=== PATIENT | male | born 1955 | race Caucasian/White ===

== ENCOUNTER → 2018-09-08 11:54 | Outpatient (CLI) | payer MEDICARE, OTHER, SELFPAY ==
--- NOTE | 2018-09-08 | DI.MRI.S_ITS ---
PROCEDURE: MR STROKE Pre- and post-contrast brain MRI, non-contrast brain MR angiogram, pre- and postcontrast neck MR angiogram INDICATIONS: CVA TECHNIQUE: Brain: Noncontrast axial T1 spin echo, axial T2 fast spin echo, sagittal and axial FLAIR, coronal T2 fast spin echo, axial gradient echo, axial diffusion and ADC through the brain. After the administration of contrast, axial 3D VIBE of the cranial vasculature and brain. Brain MRA: Non-contrast 3-D time of flight MR angiogram, with multiple tcbafkn-geowlrven-mjawnhqfhh (MIP) reformats performed. Neck MRA: Axial and sagittal TruFISP through the neck. Coronal dynamic MR angiogram during administration of contrast in the arterial and venous phases, with 3-dimenstional stvkhxe-jdcnmjfmg-glkrncwoum (MIP) reformats constructed from subtraction images. COMPARISON: None. FINDINGS: Image quality: Excellent. BRAIN: CSF spaces: Ventricles are normal in size and shape. Basal cisterns are patent. No extra-axial fluid collections. Brain: There is a 6.1 x 2.0 x 4.0 cm subacute bleed centered in the right putamen. Swan-white matter interface is normal. Diffusion weighted images show no acute ischemic insults. A few, scattered punctate foci of increased T2 signal noted in the periventricular and subcortical white matter tracts compatible with mild chronic microvascular ischemic changes. Brainstem appears normal. Normal intravascular flow voids are present. No abnormal intracranial enhancement. Skull and face: Calvarial marrow signal is normal. Orbits appear normal. Sinuses: Paranasal sinuses are clear. Fluid signal noted deep in a portion of the right mastoid air cells. Left mastoids are clear.. BRAIN MR ANGIOGRAM: Anterior circulation: Intracranial internal carotid arteries are normal in size and enhancement. The flow within the paired anterior cerebral arteries is normal and symmetric. The flow within the middle cerebral arteries is normal and symmetric. The anterior communicating artery is seen. No stenoses, occlusions, or aneurysms. Posterior circulation: The visualized portions of the vertebral arteries demonstrate normal caliber, and join to form a normal appearing basilar artery. The flow within the posterior cerebral arteries is normal and symmetric. No stenoses, occlusions, or aneurysms. NECK MR ANGIOGRAM: Carotids: Great vessels demonstrate a conventional anatomy as they arise from the aortic arch. The origins of the common carotid arteries appear patent. The calibers and courses of both common carotid arteries are normal. The bifurcation regions appear normal bilaterally. The internal carotid arteries demonstrate normal course and caliber. Posterior circulation: The origins of the vertebral arteries appear patent. More superior portions of both vertebral arteries demonstrate normal course and caliber, and join to form a normal appearing basilar artery. Miscellaneous: Subclavian arteries appear patent. Pre-contrast images through the neck show no soft tissue abnormalities. IMPRESSION: BRAIN MRI: 1. 6.1 x 2.0 x 4.0 cm subacute right putamen parenchymal bleed compatible with known history of hemorrhagic infarct. Recommend followup MRI of the brain with and without contrast in 6-8 weeks to exclude underlying vascular malformation or neoplasm 2. Mild, diffuse cerebral volume loss. 3. Mild periventricular and subcortical chronic microvascular ischemic changes. BRAIN MR ANGIOGRAM: Negative examination. NECK MR ANGIOGRAM: Negative examination. Findings and recommendations telephoned to Dr. Demetrio Stevens on 09/08/2018 at 1541 hrs. Dictated by: Angela Fischer MD, PhD on 09/08/2018 at 15:28 Approved by: Angela Fischer MD, PhD on 09/08/2018 at 16:03
== END ==
PROVIDERS: PCP Family Medicine; Visit Provider Family Medicine
DX: I63.9 Cerebral infarction, unspecified (principal)
CPT/HCPCS: 70548; 70553; A9579

== ENCOUNTER → 2018-11-26 11:52 | Outpatient (CLI) | payer MEDICARE, OTHER, SELFPAY ==
--- NOTE | 2018-11-26 | DI.MRI.S_ITS ---
PROCEDURE: MR STROKE Pre- and post-contrast brain MRI, non-contrast brain MR angiogram, pre- and postcontrast neck MR angiogram INDICATIONS: Hemiplegia - follow up TECHNIQUE: Brain: Noncontrast axial T1 spin echo, axial T2 fast spin echo, sagittal and axial FLAIR, coronal T2 fast spin echo, axial gradient echo, axial diffusion and ADC through the brain. After the administration of contrast, axial 3D VIBE of the cranial vasculature and brain. Brain MRA: Non-contrast 3-D time of flight MR angiogram, with multiple salgvkh-rnmdjejci-epbpbnvxui (MIP) reformats performed. Neck MRA: Axial and sagittal TruFISP through the neck. Coronal dynamic MR angiogram during administration of contrast in the arterial and venous phases, with 3-dimenstional yslpyuu-rrcbqyixp-lmxozkudse (MIP) reformats constructed from subtraction images. COMPARISON: [facility], MR, MR STROKE, 09/08/2018, 12:27. FINDINGS: Image quality: Excellent. BRAIN: CSF spaces: Ex vacuo dilatation can be seen of the right lateral ventricle. Basal cisterns are patent. No extra-axial fluid collections. Brain: Volume loss and encephalomalacia can be seen involving the right basal ganglia. Deposition of blood products can be seen, with associated susceptibility artifact. No underlying masses are seen. No new intracranial bleeds or mass effects. Swan-white matter interface is normal. Diffusion weighted images show no acute ischemic insults. Brainstem appears normal. Normal intravascular flow voids are present. No abnormal intracranial enhancement. Note is made of a cavum septum pellucidum. When discovered in isolation, this is considered to be a developmental variant of no clinical consequence. Skull and face: Calvarial marrow signal is normal. Orbits appear normal. Sinuses: Sinuses and mastoids are clear. BRAIN MR ANGIOGRAM: Anterior circulation: Intracranial internal carotid arteries are normal in size and enhancement. The flow within the paired anterior cerebral arteries is normal and symmetric. The flow within the middle cerebral arteries is normal and symmetric. The anterior communicating artery is seen. No stenoses, occlusions, or aneurysms. Posterior circulation: The visualized portions of the vertebral arteries demonstrate normal caliber, and join to form a normal appearing basilar artery. Relatively prominent bilateral posterior Conrad arteries are seen. The flow within the posterior cerebral arteries is normal and symmetric. No stenoses, occlusions, or aneurysms. NECK MR ANGIOGRAM: Carotids: Great vessels demonstrate a conventional anatomy as they arise from the aortic arch. The origins of the common carotid arteries appear patent. The calibers and courses of both common carotid arteries are normal. The bifurcation regions appear normal bilaterally. The internal carotid arteries demonstrate normal course and caliber. Posterior circulation: The origins of the vertebral arteries appear patent. More superior portions of both vertebral arteries demonstrate normal course and caliber, and join to form a normal appearing basilar artery. Miscellaneous: Subclavian arteries appear patent. Pre-contrast images through the neck show no soft tissue abnormalities. IMPRESSION: BRAIN MRI: There is a hemorrhagic infarction involving the right basal ganglia, with volume loss compared to the prior examination, with associated ex vacuo dilatation of the right lateral ventricle. The majority of the previously seen hemorrhage has been resolved, yet there is deposition of blood products seen. No underlying mass or vascular abnormality can be seen. No new infarct can be seen. BRAIN MR ANGIOGRAM: No significant intracranial arterial abnormality can be seen. NECK MR ANGIOGRAM: Within the arteries of the neck, no hemodynamically significant stenosis can be seen. Dictated by: Jamison Martines M.D. on 11/26/2018 at 12:41 Approved by: Jamison Martines M.D. on 11/26/2018 at 12:46
== END ==
PROVIDERS: PCP Family Medicine; Visit Provider Family Medicine
DX: I61.0 Nontraumatic intracerebral hemorrhage in hemisphere, subcortical (principal); G81.90 Hemiplegia, unspecified affecting unspecified side
CPT/HCPCS: 70548; 70553

== ENCOUNTER → 2022-02-27 09:20 | Outpatient (CLI) | payer MEDICARE, OTHER, SELFPAY ==
[2022-02-27 19:40] LABS: Add Manual Diff / Slide Review NO; Alanine Aminotransferase 19 IU/L (<50); Albumin 4.1 g/dL (3.5-5.0); Albumin Globulin Ratio 1.4 (1.0-2.8); Alkaline Phosphatase 59 U/L (38-126); Aspartate Aminotransferase 26 IU/L (17-59); BUN Creatinine Ratio 10.1 (6-22); Basophils Absolute Auto 0 /uL (0-100); Basophils Percent Auto 1.4 % (0-2); Bilirubin Total 0.4 mg/dL (0.2-1.3); Blood Urea Nitrogen 11 mg/dL (9-20); Calcium 8.9 mg/dL (8.4-10.2); Carbon Dioxide 28 mmol/L (22-32); Chloride 104 mmol/L (98-107); Cholesterol 215 mg/dL (140-199); Eosinophils Absolute Auto 100 /uL (0-450); Eosinophils Percent Auto 2.4 % (2-4); Estimated Glomerular Filt Rate > 60 mL/min (>60); Glucose 99 mg/dL (80-110); HDL Cholesterol 82 mg/dL (40-60); HEMOLYSIS < 15 (0-50); Hematocrit 42.4 % (41-53); Hemoglobin 14.4 g/dL (13.5-17.5); LDL Cholesterol Calculated 106 mg/dL (<100); Lymphocytes Absolute Auto 1100 /uL (1100-4500); Lymphocytes Percent Auto 37.2 % (25-40); Mean Corpuscular HGB Conc 34.1 % (30-36); Mean Corpuscular Hemoglobin 31.6 PG (26-34); Mean Corpuscular Volume 92.9 fL (80-100); Monocytes Absolute Auto 300 /uL (0-900); Monocytes Percent Auto 9.2 % (3-14); Neutrophils Absolute Auto 1500 /uL (1500-7000); Neutrophils Percent Auto 49.8 % (50-75); Platelet Count 253 X10^3/uL (150-400); Potassium 4.4 mmol/L (3.4-5.1); Red Blood Cell Count 4.56 X10^6/uL (4.5-5.9); Red Cell Distribution Width 13.5 % (11.6-14.8); Sodium 138 mmol/L (137-145); Total Protein 7.1 g/dL (6.3-8.2); Triglycerides 133 mg/dL (35-150); White Blood Cell Count 2.9 X10^3/uL (4.5-11.0)
== END ==
PROVIDERS: PCP Family Medicine; Visit Provider Family Medicine
DX: Z00.00 Encounter for general adult medical examination without abnormal findings (principal); I10 Essential (primary) hypertension; I61.9 Nontraumatic intracerebral hemorrhage, unspecified; R97.20 Elevated prostate specific antigen [PSA]; Z12.5 Encounter for screening for malignant neoplasm of prostate
CPT/HCPCS: 80053; 80061; 85025; G0103

== ENCOUNTER → 2022-05-03 09:10 | Outpatient (CLI) | payer MEDICARE, OTHER, SELFPAY ==
[2022-05-10 17:24] LABS: Prostate Specific Antigen 5.46 ng/mL (0.10-4.00)
== END ==
PROVIDERS: PCP Family Medicine; Visit Provider Family Medicine
DX: R97.20 Elevated prostate specific antigen [PSA] (principal); I10 Essential (primary) hypertension
CPT/HCPCS: 84153

== ENCOUNTER → 2022-09-12 09:08 | Outpatient (CLI) | payer MEDICARE, OTHER, SELFPAY ==
--- NOTE | 2022-09-12 09:10 | DI.MRI.S_ITS ---
PROCEDURE: MR PELVIC PROSTATE PROTOCOL INDICATIONS: elevated PSA TECHNIQUE: Coronal HASTE, axial T1 FSE with fat saturation, 3-plane nonbreath-hold T2 FSE. After the administration of contrast, dynamic axial, delayed axial and coronal VIBE or 2-D FLASH with fat saturation through the pelvis. Optional diffusion weighted imaging and ADC may be performed. COMPARISON: None. FINDINGS: Image quality: Diffusion weighted and dynamic contrast enhanced images are diagnostic. Prostate: Gland size is 4.7 x 3.1 x 3.6 cm; ellipsoid gland volume is 27 mL. There is preservation of normal prostate architecture. There is a surgical defect of a prior TURP. Postcontrast, there is periurethral enhancement. Lesion 1. Right lateral peripheral zone at the mid gland level, ovoid in shape, indistinct margin. 1.3 cm in maximal diameter. T2 score three, diffusion score three, dynamic enhancement present. Total PI-RADS score four. Lesion 2. Right central periurethral transition zone lesion at mid gland to apex. 0.7 cm in maximal diameter measured on diffusion-weighted imaging. T2 score three, diffusion score four, dynamic enhancement is absent. Total PI-RADS score three. Differential diagnosis includes postinflammatory fibrosis. Genitourinary system: Bladder wall is nonenhancing and mildly thickened, but heavily trabeculated suggesting chronic over distension. No stones or diverticula. Seminal vesicles are symmetric and normal. The distal ureters are nondistended. Bowel and peritoneum: No pathologic free pelvic fluid. Inferior colon and small bowel loops are normal in caliber. Nodes and vessels: No pelvic or inguinal adenopathy by size criteria. Iliac vessels are normal in caliber. Soft tissues: No inguinal hernias. Bones: Marrow demonstrates normal overall signal, without lesions to suggest metastases. IMPRESSION: 1. 0.9 cm right mid gland peripheral zone index lesion with PI-RADS four score. 2. A 2nd, equivocal periurethral lesion with PI-RADS three score. 3. Postcontrast urethral enhancement may indicate infection or chronic inflammation, particularly in the setting of prior TURP. 4. No pelvic adenopathy. Dictated by: Maria Luisa Vazquez M.D. on 09/12/2022 at 22:59 Approved by: Maria Luisa Vazquez M.D. on 09/12/2022 at 23:22
== END ==
PROVIDERS: PCP Family Medicine; Referring Provider Urology; Visit Provider Urology
DX: N42.9 Disorder of prostate, unspecified (principal); R97.20 Elevated prostate specific antigen [PSA]
CPT/HCPCS: 72197; A9579

== ENCOUNTER → 2023-04-02 11:27 | Outpatient (CLI) | payer MEDICARE, OTHER, SELFPAY ==
[2023-04-02 19:34] LABS: Add Manual Diff / Slide Review NO; Basophils Absolute Auto 0 /uL (0-100); Basophils Percent Auto 0.8 % (0-2); Eosinophils Absolute Auto 0 /uL (0-450); Eosinophils Percent Auto 0.9 % (2-4); Hematocrit 40.7 % (41-53); Hemoglobin 14.1 g/dL (13.5-17.5); Lymphocytes Absolute Auto 1100 /uL (1100-4500); Lymphocytes Percent Auto 22.1 % (25-40); Mean Corpuscular HGB Conc 34.6 % (30-36); Mean Corpuscular Hemoglobin 32.2 PG (26-34); Mean Corpuscular Volume 93.2 fL (80-100); Monocytes Absolute Auto 400 /uL (0-900); Monocytes Percent Auto 7.2 % (3-14); Neutrophils Absolute Auto 3600 /uL (1500-7000); Platelet Count 242 X10^3/uL (150-400); Red Blood Cell Count 4.36 X10^6/uL (4.5-5.9); White Blood Cell Count 5.2 X10^3/uL (4.5-11.0)
[2023-04-02 20:04] LABS: Blood Urea Nitrogen 12 mg/dL (9-20); Carbon Dioxide 28 mmol/L (22-32); Chloride 100 mmol/L (98-107); HEMOLYSIS < 15 (0-50); Potassium 4.4 mmol/L (3.4-5.1); Sodium 134 mmol/L (137-145)
[2023-04-02 20:05] LABS: Calcium 9.5 mg/dL (8.4-10.2); Cholesterol 231 mg/dL (140-199); Estimated Glomerular Filt Rate > 60 mL/min (>60); Glucose 96 mg/dL (80-110); Triglycerides 152 mg/dL (35-150)
[2023-04-02 20:21] LABS: Prostate Specific Antigen 7.36 ng/mL (0.10-4.00)
[2023-04-02 23:30] LABS: HDL Cholesterol 82 mg/dL (40-60); LDL Cholesterol Calculated 119 mg/dL (<100)
== END ==
PROVIDERS: Urology; PCP Family Medicine; Visit Provider Family Medicine
DX: I69.30 Unspecified sequelae of cerebral infarction (principal); C61 Malignant neoplasm of prostate; I10 Essential (primary) hypertension; D70.9 Neutropenia, unspecified; R97.20 Elevated prostate specific antigen [PSA]
CPT/HCPCS: 80048; 80061; 84153; 85025

== ENCOUNTER → 2023-07-04 10:49 | Outpatient (CLI) | payer MEDICARE, OTHER, SELFPAY ==
[2023-07-04 20:55] LABS: Prostate Specific Antigen 7.35 ng/mL (0.10-4.00)
== END ==
PROVIDERS: PCP Family Medicine; Visit Provider Family Medicine
DX: R97.20 Elevated prostate specific antigen [PSA] (principal)
CPT/HCPCS: 84153

== ENCOUNTER → 2023-10-01 13:09 | Outpatient (CLI) | payer MEDICARE, OTHER, SELFPAY ==
[2023-10-01 21:09] LABS: Prostate Specific Antigen 8.25 ng/mL (0.10-4.00)
== END ==
PROVIDERS: PCP Family Medicine; Visit Provider Family Medicine
DX: N40.1 Benign prostatic hyperplasia with lower urinary tract symptoms (principal); R39.11 Hesitancy of micturition; R97.20 Elevated prostate specific antigen [PSA]
CPT/HCPCS: 84153

== ENCOUNTER → 2024-01-02 11:50 | Outpatient (CLI) | payer MEDICARE, OTHER, SELFPAY | PROVIDERS: PCP Family Medicine; Visit Provider Urology | DX: R97.20 Elevated prostate specific antigen [PSA] (principal) | CPT/HCPCS: 84153 ==

== ENCOUNTER → 2024-04-02 09:51 | Outpatient (CLI) | payer MEDICARE, OTHER, SELFPAY ==
[2024-04-02 19:33] LABS: Add Manual Diff / Slide Review NO; Basophils Absolute Auto 0 /uL (0-100); Basophils Percent Auto 0.7 % (0-2); Eosinophils Absolute Auto 0 /uL (0-450); Eosinophils Percent Auto 0.7 % (2-4); Hemoglobin 14.5 g/dL (13.5-17.5); Lymphocytes Absolute Auto 1200 /uL (1100-4500); Mean Corpuscular HGB Conc 33.7 % (30-36); Mean Corpuscular Hemoglobin 30.1 PG (26-34); Mean Corpuscular Volume 89.3 fL (80-100); Monocytes Absolute Auto 400 /uL (0-900); Monocytes Percent Auto 8.1 % (3-14); Neutrophils Absolute Auto 2800 /uL (1500-7000); Neutrophils Percent Auto 62.5 % (50-75); Platelet Count 262 X10^3/uL (150-400); Red Blood Cell Count 4.81 X10^6/uL (4.5-5.9); Red Cell Distribution Width 13.8 % (11.6-14.8); White Blood Cell Count 4.4 X10^3/uL (4.5-11.0)
[2024-04-02 19:58] LABS: BUN Creatinine Ratio 12.7 (6-22); Blood Urea Nitrogen 14 mg/dL (9-20); Calcium 9.4 mg/dL (8.4-10.2); Carbon Dioxide 27 mmol/L (22-32); Chloride 102 mmol/L (98-107); Cholesterol 252 mg/dL (140-199); Estimated Glomerular Filt Rate > 60 mL/min (>60); Glucose 92 mg/dL (80-110); HDL Cholesterol 68 mg/dL (40-60); HEMOLYSIS 16 (0-50); LDL Cholesterol Calculated 163 mg/dL (<100); Potassium 4.3 mmol/L (3.4-5.1); Sodium 137 mmol/L (137-145); Triglycerides 104 mg/dL (35-150)
[2024-04-02 20:29] LABS: Prostate Specific Antigen 9.09 ng/mL (0.10-4.00)
[2024-04-04 10:08] LABS: PSA Free % 10.4 % (.); PSA, Total 7.8 ng/mL (0.0-4.0)
== END ==
PROVIDERS: Urology; PCP Family Medicine; Visit Provider Family Medicine
DX: I10 Essential (primary) hypertension (principal); C61 Malignant neoplasm of prostate; N52.01 Erectile dysfunction due to arterial insufficiency; I69.30 Unspecified sequelae of cerebral infarction; G81.94 Hemiplegia, unspecified affecting left nondominant side; D70.8 Other neutropenia
CPT/HCPCS: 80048; 80061; 84153; 84154; 85025

== ENCOUNTER → 2024-07-07 13:17 | Outpatient (CLI) | payer MEDICARE, OTHER, SELFPAY ==
[2024-07-07 19:43] LABS: Prostate Specific Antigen 10.5 ng/mL (0.10-4.00)
== END ==
LOC: LAB 13:17
PROVIDERS: PCP Family Medicine; Visit Provider Urology
DX: C61 Malignant neoplasm of prostate (principal)
CPT/HCPCS: 84153

== ENCOUNTER → 2024-09-04 08:52 | Outpatient (CLI) | payer MEDICARE, OTHER, SELFPAY ==
--- NOTE | 2024-09-04 08:53 | DI.MRI.S_ITS ---
PROCEDURE: MR PELVIC PROSTATE PROTOCOL INDICATIONS: 69 y/o M w/ prostate cancer, please eval TECHNIQUE: Coronal HASTE, axial T1 FSE with fat saturation, 3-plane nonbreath-hold T2 FSE. After the administration of contrast, dynamic axial, delayed axial and coronal VIBE or 2-D FLASH with fat saturation through the pelvis. Diffusion weighted imaging and ADC was performed. COMPARISON: [facility], , MR PELVIC PROSTATE PROTOCOL, 09/12/2022, 12:12. FINDINGS: Image quality: Diffusion weighted and dynamic contrast enhanced images are diagnostic. Prostate: Gland size is 3.9 x 3 x 3.8 cm; ellipsoid gland volume is 23 mL. Moderately elevated PSA density at 0.456 Peripheral zone right mid gland lesion measures 1 x 0.7 x 1.6 cm (4, 07/08). DWI score 4. T2 score 4. DCE positive. PI-RADS 4. This is slightly increased in size. Right transitional zone apex periurethral lesion measures 0.9 x 0.9 cm (/). T2 score 4. DWI score 4. DCE positive. PI-RADS 4. This is similar in size, but with more convincing signal abnormality today. TURP defect. No definite extracapsular disease. Seminal vesicles are clear Genitourinary system: Trabeculated bladder usually from chronic obstruction. Bowel and peritoneum: No bowel obstruction in the lower abdomen. No pathologic ascites There is a moderate rectal stool ball. Nodes and vessels: No enlarged lymph nodes by size criteria. No aneurysmal vessel identified Soft tissues: Unremarkable Bones: No aggressive appearing osseous abnormality. IMPRESSION: PI-RADS 4 lesions as described above. These have slightly increased in signal abnormality and size. No definite extracapsular disease, however, the peripheral zone lesion described above may have micro capsular involvement given extent of capsular contact, assuming targeted biopsies are positive. No pelvic lymphadenopathy by size criteria. No aggressive osseous abnormality. No seminal vesicle involvement. Given elevated PSA density, a prostate PET-CT could be obtained to evaluate for disease outside the prostate. Dictated by: Sai Porter M.D. on 09/04/2024 at 16:08 Approved by: Sai Porter M.D. on 09/04/2024 at 16:16
== END ==
PROVIDERS: PCP Family Medicine; Referring Provider Urology; Visit Provider Urology
DX: C61 Malignant neoplasm of prostate (principal); N32.89 Other specified disorders of bladder
CPT/HCPCS: 72197; A9579

== ENCOUNTER → 2025-02-01 11:46 | Outpatient (CLI) | payer MEDICARE, OTHER, SELFPAY | PROVIDERS: Urology; PCP Family Medicine; Visit Provider Family Medicine | DX: C61 Malignant neoplasm of prostate (principal) | CPT/HCPCS: 84153; 84154 ==